=== PATIENT | female | born 1965 | race African-American/Black ===

== ENCOUNTER 2021-04-08 16:06 | Emergency (ER) | payer OTHER ==
[~2021-04-08] VITALS: Ht 162.6 cm; Wt 82.0 kg
[2021-04-08] MEDS: ACETAMINOPHEN 325MG TABLET PO ONE ×2 (17:25→17:32)
[2021-04-08 18:31] VITALS: BP 161/79
== END 2021-04-08 18:32 | disposition home or self-care (01) ==
LOC: ER 16:06
DX: S46.812A Strain of other muscles, fascia and tendons at shoulder and upper arm level, left arm, initial encounter (principal); M54.9 Dorsalgia, unspecified; X58.XXXA Exposure to other specified factors, initial encounter; Y93.89 Activity, other specified; Y92.89 Other specified places as the place of occurrence of the external cause
CPT/HCPCS: 71045; 73030; 99284